=== PATIENT | female | born 2005 | race Two or more races ===

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

== ENCOUNTER → 2024-05-01 | Emergency (ER) | payer OTHER ==
[~2024-05-01] VITALS: Ht 172.7 cm; Wt 104.3 kg
[~2024-05-01] MED LIST changes: +CETI10CA8 PO; +FAMOTIDINE (20 MG) 20 MG TABLET PO ONE; +LIDO1ADH82 TP; +PRED50TA PO; +predniSONE 50 MG TABLET PO ONE
[2024-05-01 17:08] VITALS: BP 127/87; TEMP 98.3; O2SAT 95
== END | disposition home or self-care (01) ==
LOC: ER 18:11
DX: T78.40XA Allergy, unspecified, initial encounter (principal); J45.909 Unspecified asthma, uncomplicated; Z79.52 Long term (current) use of systemic steroids; Z88.6 Allergy status to analgesic agent; Y92.89 Other specified places as the place of occurrence of the external cause

== ENCOUNTER 2024-12-08 22:20 | Emergency (ER) | payer MEDICAID, OTHER ==
[~2024-12-08] VITALS: Ht 172.7 cm; Wt 99.8 kg
[~2024-12-08 22:20] MED LIST changes: -FAMOTIDINE (20 MG) 20 MG TABLET PO ONE; -predniSONE 50 MG TABLET PO ONE
[2024-12-08] MEDS ORDERED: FAMOTIDINE (20 MG) 20 MG TABLET ONE (23:05)
[2024-12-08] MEDS ORDERED: LORATADINE 10 MG TABLET ONE (23:05)
[2024-12-08] MEDS: FAMOTIDINE (20 MG) 20 MG TABLET PO ONE (23:16)
[2024-12-08] MEDS: LORATADINE 10 MG TABLET PO SCH (23:17)
[2024-12-09] MEDS ORDERED: PRED50TA PO (00:16)
[2024-12-09] MEDS ORDERED: FEXO-65 PO (00:16)
[2024-12-09 00:18] LABS: PREGNANCY TEST URINE QUAL NEGATIVE (NEGATIVE)
[2024-12-09 00:38] VITALS: BP 133/72; TEMP 98.1; O2SAT 99
[2024-12-09] MEDS ORDERED: LORATADINE 10 MG TABLET PO ONE (23:00)
== END 2024-12-09 00:38 | disposition home or self-care (01) ==
LOC: ER 22:23
DX: R21 Rash and other nonspecific skin eruption (principal); T78.1XXA Other adverse food reactions, not elsewhere classified, initial encounter; J45.909 Unspecified asthma, uncomplicated; Z79.52 Long term (current) use of systemic steroids; Z88.6 Allergy status to analgesic agent; Z91.018 Allergy to other foods; Y92.89 Other specified places as the place of occurrence of the external cause
CPT/HCPCS: 99284; 84703; J7512